=== PATIENT | male | born 1945 | race Caucasian/White ===

== ENCOUNTER 2019-10-29 18:03 | Emergency (ER) | payer MEDICARE, BC ==
[2019-10-29 18:41] VITALS: BP 165/98; PULSE 87
--- NOTE | 2019-10-29 19:39 | EDM.PDOC ---
ED HPI GENERAL MEDICAL PROBLEM - General Chief Complaint: Lower Extremity Injury/Pain Stated Complaint: FELL RT UPPER LEG INJURY Time Seen by Provider: 10/29/19 18:59 Source of Information: Reports: Patient History Limitations: Reports: No Limitations - History of Present Illness INITIAL COMMENTS - FREE TEXT/NARRATIVE: TRIAGE NOTE -- Pt presents to ER for complaints of right leg pain and bilateral lower back pain after a fall. Pt states that he was walking towards the mailbox when he started "leaning towards the right" and just fell onto the ground. Pt landed on the right side of his body, has pain on the right hip which radiates into the bilateral lower back, and has right elbow pain. Pt states that he did hit his head, denies having a headache or blurred vision. Pt was able to get himself off the ground and call for help. Pt has had previous lower back surgery and has had bilateral knee replacements. Pt is alert and oriented, is taking 81 mg aspirin daily, and did not take anything for pain [employer]. [ End ] ABOVE. . . HAD L-SPING PROCEDURE SEPT THIS YEAR. APPARENTLY FOR RADICULAR PAIN. FELL THREE WEEKS AGO WITH PAIN LEFT HIP. NO IMAGING OF WORK UP. HAS BEEN SEEING CHIROPRACTOR FOR THIS. FELL TONIGHT ABOVE. THINKS HE HIT HEAD. PAIN IN NECK DIFFUSELY. NO SYNCOPE, NO LOC. NO CP ETC INVOLVED. NO PRECIPITANT IDENTIFIED. 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 PAIN IN RIGHT HIP DIFFUSELY AND LATERALLY AND SEEMS TO BE RADIATING LOW BACK TO HIP AND RIGHT THIGH. RISK FACTORS AGE. MEDICAL PROBLEMS. HX OF ORTHO ISSUES. Right Leg Pain Score (Numeric/FACES): 2 - Related Data Allergies Allergy/AdvReac Type Severity Reaction Status Date / Time No Known Allergies Allergy Verified 10/29/19 18:42 Home Meds: Home Meds Aspirin [Halfprin] 81 mg PO DAILY 09/21/14 [History] Calcium Carbonate [Calcium] 500 mg PO DAILY 09/21/14 [History] Celecoxib [CeleBREX] 200 mg PO DAILY 09/21/14 [History] Desoximetasone [Topicort 0.05% Crm] 1 dose TOP DAILY 09/21/14 [History] Fish Oil/[place]-3 Fatty Acids [Fish Oil 1,000 MG] 1,000 mg PO DAILY 09/21/14 [ History] Hydrocortisone [Anusol-HC] 1 dose TOP DAILY 09/21/14 [History] Lutein 20 mg PO DAILY 09/21/14 [History] Multivits-Min/FA/Lycopene/Lut [Sentry Senior] 1 tab PO DAILY 09/21/14 [History] Triamterene/Hydrochlorothiazid [Dyazide 37.5-25] 1 cap PO DAILY 09/21/14 [ History] LORazepam [Ativan] 0.5 mg PO Q12H PRN 03/22/15 [History] Amoxicillin 2,000 mg PO ASDIRECTED PRN 10/29/19 [History] Cetirizine [ZyrTEC] 10 mg PO DAILY 10/29/19 [History] Doxazosin [Doxazosin Mesylate] 4 mg PO DAILY 10/29/19 [History] Escitalopram [Lexapro] 20 mg PO DAILY 10/29/19 [History] Hydrocodone/Acetaminophen [[place] 10-325 Tablet] 1 each PO Q6HR PRN 10/29/19 [ History] methylPREDNISolone [Methylprednisolone] 4 mg PO DAILY 10/29/19 [History] Past Medical History HEENT History: Reports: Cataract, Glaucoma, Impaired Vision Other HEENT History: Wears glasses Cardiovascular History: Reports: Hypertension, Other (See Below) Other Cardiovascular History: Bundle Branch Block Respiratory History: Reports: None Gastrointestinal History: Reports: Colon Polyp, GERD, Hemorrhoids, Other (See Below) Other Gastrointestinal History: Ulcerative colitis Genitourinary History: Reports: BPH Other Musculoskeletal History: Right foot drop Neurological History: Reports: None Psychiatric History: Reports: Depression Endocrine/Metabolic History: Reports: None Hematologic History: Reports: None Immunologic History: Reports: None Other Oncologic History: Melanoma Dermatologic History: Reports: Melanoma Other Dermatologic History: Left Ear Melanoma - Infectious Disease History Infectious Disease History: Reports: None - Past Surgical History HEENT Surgical History: Reports: Cataract Surgery Other HEENT Surgeries/Procedures: Bilateral Eye Derpipheral Iridotomy GI Surgical History: Reports: Hernia, Inguinal, Hernia Repair/Other Musculoskeletal Surgical History: Reports: Knee Replacement, Shoulder Surgery Other Musculoskeletal Surgeries/Procedures:: Left Rotator Cuff Repair; Trigger Finger Repair; Bursa Sacs removed from bilateral knees; Bilateral total knee replacement; Reverse total shoulder arthroplasty; left midfoot fusion, Left hand procedures. Social & Family History - Tobacco Use Smoking Status *Q: Never Smoker - Caffeine Use Caffeine Use: Reports: Coffee - Recreational Drug Use Recreational Drug Use: No Review of Systems - Review of Systems Review Of Systems: Comprehensive ROS is negative, except as noted in HPI. ED EXAM, GENERAL - Physical Exam Exam: See Below Exam Limited By: No Limitations General Appearance: Alert Eye Exam: Bilateral Eye: EOMI, PERRL Ears: Normal External Exam Nose: Normal Inspection Throat/Mouth: Normal Inspection Head: Atraumatic, Normocephalic. No: Facial Swelling Neck: Normal Inspection, Supple, Non-Tender Respiratory/Chest: No Respiratory Distress, Lungs Clear, Normal Breath Sounds Cardiovascular: Normal Peripheral Pulses (BOUNDING PEDAL PULSES), Regular Rate, Rhythm, No Edema GI/Abdominal: Soft, Non-Tender, Other (TENDER OVER RIGHT PUBIC RAMUS TO DEEP PALPATION) Back Exam: Other (OLD WELL HEALED LONGITUDINAL MIDLINE SCAR LOW BACK). No: CVA Tenderness (L), CVA Tenderness (R), Paraspinal Tenderness, Vertebral Tenderness Extremities: Other (NO DEFORMITY NO LEG LENGTH DISCREPITANCY NO PAIN ON DEEP PALPATION OF HIP JOINTS ADEQUATE ROM HIPS) Neurological: Alert, Oriented, CN II-XII Intact, Normal Cognition Psychiatric: Normal Affect, Normal Mood Skin Exam: Warm, Dry Course - Vital Signs Text/Narrative:: The patient has had CT scans of head cervical spine lumbar spine and pelvis. Acutely there is right superior and inferior pubic rami fractures. This is consistent with the patient's exam. This is undoubtedly from his fall prior to arrival. Additionally there is a finding of multiple column fracture involving anterior and posterior elements of left L5 vertebral level. This is undoubtedly from a fall 3 weeks ago. On his face of fracture such as this is unstable. However I spoke with the patient's neurosurgeon Dr. Bimal Lyman in [place]. Dr. Lyman did spinal surgery on the patient in July of this year. Dr. Lyman will be in town on Friday and the patient has an appointment with him. As this finding is undoubtedly 3 weeks old and the patient has been improving over the past 3 weeks and there is no tenderness in the area and patient can sit up readily and mobilize there is no reason for admission or transfer for this. Dr. Lyman notes that after 3 weeks the issue of possible instability has been laid to rest. The patient is happy to go home and we will discharge him. However he needs someone in the house with him and family is at bedside and someone will be staying with him for the immediate future. Strict precautions for return to ER. Last Recorded V/S: Last Vital Signs Temp 36.7 C 10/29/19 18:38 Pulse 87 10/29/19 18:38 Resp 18 10/29/19 18:38 BP 165/98 H 10/29/19 18:38 Pulse Ox 95 10/29/19 18:38 - Orders/Labs/Meds Orders: Active Orders 24 hr Category Date Time Status Cervical Spine wo Cont [CT] Stat Exams 10/29/19 19:13 Taken Head wo Cont [CT] Stat Exams 10/29/19 19:13 Taken Lumbar Spine wo Cont [CT] Stat Exams 10/29/19 19:10 Taken Pelvis wo Cont [CT] Stat Exams 10/29/19 19:10 Taken Departure - Departure Time of Disposition: 22:03 Disposition: Home, Self-Care 01 Clinical Impression: Fracture of right inferior pubic ramus Qualifiers: Encounter type: initial encounter Fracture type: closed Qualified Code(s): S32.591A - Other specified fracture of right pubis, initial encounter for closed fracture Fracture of right superior pubic ramus Qualifiers: Encounter type: initial encounter Fracture type: closed Qualified Code(s): S32.511A - Fracture of superior rim of right pubis, initial encounter for closed fracture Closed L5 vertebral fracture Qualifiers: Encounter type: initial encounter Fracture morphology: unspecified fracture morphology Qualified Code(s): S32.059A - Unspecified fracture of fifth lumbar vertebra, initial encounter for closed fracture - Discharge Information Referrals: Rob Sands MD [Primary Care Provider] - Forms: ED Department Discharge Additional Instructions: You have an acute fracture of the right pubic bones of the pelvis. That is from your fall today. There is also a fracture of the fifth lumbar vertebra which is probably 3 weeks old and without threat of instability and essentially asymptomatic at this point. I have spoken with Dr. Lyman and we have his consent to let you go home. However you need to have someone in the house with you to make sure that you can do transfers and get around the house safely. Dr. Lyman will see you when he visits [place] this coming Friday. Return to the ER for any concerns at all including pain, fever, any inability to mobilize. Sepsis Event Note - Evaluation Sepsis Screening Result: No Definite Risk - Focused Exam Vital Signs: Vital Signs Temp Pulse Resp BP Pulse Ox 10/29/19 18:38 36.7 C 87 18 165/98 H 95 Date Exam was Performed: 10/29/19 Time Exam was Performed: 22:09 - My Orders Last 24 Hours: My Active Orders 10/29/19 19:10 Lumbar Spine wo Cont [CT] Stat Pelvis wo Cont [CT] Stat 10/29/19 19:13 Cervical Spine wo Cont [CT] Stat Head wo Cont [CT] Stat - Assessment/Plan Last 24 Hours: My Active Orders 10/29/19 19:10 Lumbar Spine wo Cont [CT] Stat Pelvis wo Cont [CT] Stat 10/29/19 19:13 Cervical Spine wo Cont [CT] Stat Head wo Cont [CT] Stat
--- NOTE | 2019-11-01 07:12 | CT ---
CT lumbar spine Technique: Multiple axial sections were obtained from above the T10-T11 disc inferiorly through the L5-S1 disc. Reconstructed sagittal and coronal images were reviewed. Comparison: Previous lumbar spine study is not available. Old bilateral spondylitic defects seen at L5-S1. Acute fracture is identified involving the base of the transverse process and pedicle of L5 on the left side with extension into the apophyseal joint. No displacement is seen. No additional vertebral body or posterior arch fracture is seen. Disc space narrowing seen at T12-L1, L1-L2 and L2-L3 with vacuum phenomena. Posterior disc space narrowing noted at L5-S1 with vacuum phenomena. Mild spondylolisthesis noted at L4-L5 due to degenerative apophyseal change. Posterior spurring noted at T12-L1, L1-L2 and L2-L3. No central canal stenosis is seen. Moderate neural foraminal stenosis is noted at T11-T12 on both sides. Left-sided neural foraminal stenosis at T12-L1. Bilateral neural foraminal stenosis at L1-L2. Bilateral neural foraminal stenosis at L2-L3. Left-sided neural foraminal stenosis at L3-L4. Left-sided laminectomy noted at L4-L5 with moderate central canal stenosis. Impression: 1. Fractures within the posterior element of L5 on left side with no displacement. Old bilateral spondylitic defects at L5-S1. 2. Diffuse degenerative change as noted above. Diagnostic code #5 This report was dictated in [place] Standard Time I agree with preliminary report issued by [facility] ([facility] report finalized on 10/29/19, 9:48 PM Central Time)
--- NOTE | 2019-11-01 07:12 | CT ---
CT cervical spine Technique: Multiple axial sections were obtained from above C1 inferiorly to the lower T2 vertebral body. Reconstructed sagittal and coronal images were reviewed. Comparison: Previous MRI cervical spine study of 12/12/17. Findings: Diffuse degenerative change is noted which appears similar to prior MRI. Slight superior compression deformity of T2 is seen which appears stable from prior MRI. No acute fracture is seen. Slight spondylolisthesis is noted at C4-C5 due to degenerative apophyseal change which is stable from previous MRI. Impression: 1. Diffuse degenerative changes similar to previous MRI cervical spine study of 12/12/17. 2. No acute fracture or acute subluxation is seen. Diagnostic code #2 This report was dictated in [place] Standard Time I agree with preliminary report issued by [facility] ([facility] report finalized on 10/29/19, 9:37 PM Central Time)
--- NOTE | 2019-11-01 07:12 | CT ---
Head CT Technique: Multiple axial sections through the brain were obtained. Intravenous contrast was not utilized. Comparison: No prior intracranial imaging is available. Findings: Ventricles along with basal cisterns and sulci over the convexities appear within normal limits for the patient's age. Atherosclerotic calcification is seen within the carotid siphon. No evidence of intracranial hemorrhage. No midline shift or mass effect is seen. Bone window settings were reviewed which show the visualized paranasal sinuses and mastoid sinuses to show nothing acute. No acute calvarial abnormality is seen. Impression: 1. Nothing acute is appreciated on noncontrast head CT study. Diagnostic code #1 I agree with preliminary report issued by [facility] ([facility] report finalized on 10/29/19, 9:40 PM Central Time) This report was dictated in [place] Standard Time
--- NOTE | 2019-11-01 07:12 | CT ---
CT pelvis Technique: Multiple axial sections through the pelvis were obtained. Reconstructed coronal and sagittal images were obtained. Comparison: No prior pelvis exam is available. Findings: Fracture noted within the right inferior and superior pubic ramus. Fracture is identified at the base of the transverse process of the L5 vertebral body extending into the apophyseal joint on the left side. No displacement is seen of these fractures. Spondylolytic defects are seen at L5-S1. Degenerative apophyseal change is noted within the sacroiliac joints and within the apophyseal joints of L5-S1. Numerous sigmoid diverticuli are seen. No intrapelvic hematoma is seen. Impression: 1. Left-sided lumbar spine fracture involving L5 which was described on CT lumbar spine exam. 2. Fractures within the inferior and superior right pubic ramus. Diagnostic code #5 This report was dictated in [place] Standard Time I agree with preliminary report issued by [facility] ([facility] report finalized on 10/29/19, 9:45 PM Central Time)
== END 2019-10-29 22:21 | disposition home or self-care (01) ==
LOC: JD.ED 18:03
DX: S32.511A Fracture of superior rim of right pubis, initial encounter for closed fracture (principal); S32.059A Unspecified fracture of fifth lumbar vertebra, initial encounter for closed fracture; I10 Essential (primary) hypertension; Z79.899 Other long term (current) drug therapy; Z79.82 Long term (current) use of aspirin; W19.XXXA Unspecified fall, initial encounter
CPT/HCPCS: 70450; 70450-26; 72125; 72125-26; 72131; 72131-26; 72192; 72192-26; 99283; 99283-25

== ENCOUNTER 2019-11-03 19:22 | Emergency (ER) | payer MEDICARE, BC ==
[2019-11-03 19:36] VITALS: BP 143/80; PULSE 75
--- NOTE | 2019-11-03 20:09 | EDM.PDOC ---
ED HPI GENERAL MEDICAL PROBLEM - General Chief Complaint: Back Pain or Injury Stated Complaint: LOWER BACK PAIN & LEG PAIN Time Seen by Provider: 11/03/19 19:59 - History of Present Illness INITIAL COMMENTS - FREE TEXT/NARRATIVE: 74-year-old male presents the emergency room with continued back and pelvis pain. The patient fell on the while blowing snow he ended up with transverse process fracture at L5 and a inferior and superior ramus fracture on the right side. Patient is having difficulty getting comfortable with this he is minimizing his hydrocodone to take 1 at night so he can get some rest he is worried about addiction. So watching his Tylenol intake. Had a long discussion with the patient about what is appropriate and pain management what is not I think it is perfectly appropriate that he use the pain medication at this point to get in front of the pain and then he can back off on using it. Has not had any loss of bowel or bladder control he has discomfort mostly with his right leg when he tries to ambulate and this is to be expected. He has pain going across the segment of his low back he has no loss of bowel or bladder control no other radicular symptoms. Lower Back Pain Score (Numeric/FACES): 4 - Related Data Allergies Allergy/AdvReac Type Severity Reaction Status Date / Time No Known Allergies Allergy Verified 11/03/19 19:32 Home Meds: Home Meds Aspirin [Halfprin] 81 mg PO DAILY 09/21/14 [History] Calcium Carbonate [Calcium] 500 mg PO DAILY 09/21/14 [History] Celecoxib [CeleBREX] 200 mg PO BID 09/21/14 [History] Desoximetasone [Topicort 0.05% Crm] 1 dose TOP DAILY 09/21/14 [History] Fish Oil/[place]-3 Fatty Acids [Fish Oil 1,000 MG] 1,000 mg PO DAILY 09/21/14 [ History] Hydrocortisone [Anusol-HC] 1 dose TOP DAILY 09/21/14 [History] Lutein 20 mg PO DAILY 09/21/14 [History] Multivits-Min/FA/Lycopene/Lut [Sentry Senior] 1 tab PO DAILY 09/21/14 [History] Triamterene/Hydrochlorothiazid [Dyazide 37.5-25] 1 cap PO DAILY 09/21/14 [ History] LORazepam [Ativan] 0.5 mg PO BEDTIME PRN 03/22/15 [History] Amoxicillin 2,000 mg PO ASDIRECTED PRN 10/29/19 [History] Cetirizine [ZyrTEC] 10 mg PO DAILY 10/29/19 [History] Doxazosin [Doxazosin Mesylate] 4 mg PO DAILY 10/29/19 [History] Escitalopram [Lexapro] 20 mg PO DAILY 10/29/19 [History] Hydrocodone/Acetaminophen [[place] 10-325 Tablet] 1 each PO Q6HR PRN 10/29/19 [ History] Omeprazole 20 mg PO DAILY 11/03/19 [History] Terbinafine [LamISIL] 250 mg PO DAILY 11/03/19 [History] Tylenol Pm. 11/03/19 [History] Past Medical History HEENT History: Reports: Cataract, Glaucoma, Impaired Vision Other HEENT History: Wears glasses Cardiovascular History: Reports: Hypertension, Other (See Below) Other Cardiovascular History: Bundle Branch Block Respiratory History: Reports: None Gastrointestinal History: Reports: Colon Polyp, GERD, Hemorrhoids, Other (See Below) Other Gastrointestinal History: Ulcerative colitis Genitourinary History: Reports: BPH Other Musculoskeletal History: Right foot drop Neurological History: Reports: None Psychiatric History: Reports: Depression Endocrine/Metabolic History: Reports: None Hematologic History: Reports: None Immunologic History: Reports: None Other Oncologic History: Melanoma Dermatologic History: Reports: Melanoma Other Dermatologic History: Left Ear Melanoma - Infectious Disease History Infectious Disease History: Reports: None - Past Surgical History HEENT Surgical History: Reports: Cataract Surgery Other HEENT Surgeries/Procedures: Bilateral Eye Derpipheral Iridotomy GI Surgical History: Reports: Hernia, Inguinal, Hernia Repair/Other Musculoskeletal Surgical History: Reports: Knee Replacement, Shoulder Surgery Other Musculoskeletal Surgeries/Procedures:: Left Rotator Cuff Repair; Trigger Finger Repair; Bursa Sacs removed from bilateral knees; Bilateral total knee replacement; Reverse total shoulder arthroplasty; left midfoot fusion, Left hand procedures. Social & Family History - Tobacco Use Smoking Status *Q: Never Smoker - Caffeine Use Caffeine Use: Reports: Coffee ED ROS GENERAL - Review of Systems Review Of Systems: See Below Constitutional: Reports: No Symptoms HEENT: Reports: No Symptoms Respiratory: Reports: No Symptoms Cardiovascular: Reports: Dyspnea on Exertion GI/Abdominal: Reports: No Symptoms Musculoskeletal: Reports: Back Pain, Other (Pelvis pain from the ramus fracture) Skin: Reports: No Symptoms Neurological: Reports: No Symptoms Psychiatric: Reports: No Symptoms Hematologic/Lymphatic: Reports: No Symptoms ED EXAM,LOWER BACK PAIN/INJURY - Physical Exam Exam: See Below Exam Limited By: No Limitations General Appearance: Alert, No Apparent Distress Head: Atraumatic, Normocephalic Neck: Normal Inspection, Supple, Non-Tender, Full Range of Motion Respiratory/Chest: No Respiratory Distress, Lungs Clear, Normal Breath Sounds Cardiovascular: Regular Rate, Rhythm, No Edema, No Murmur GI/Abdominal: Normal Bowel Sounds, Soft, Non-Tender Back Exam: Normal Inspection, Vertebral Tenderness (All discomfort at L5 would expect more with a spinous process fracture however it is nondisplaced). No: CVA Tenderness (L), CVA Tenderness (R) Extremities: Normal Inspection, No Pedal Edema Neurological: Alert, Normal Mood/Affect Course - Vital Signs Last Recorded V/S: Last Vital Signs Temp 36.3 C 11/03/19 19:32 Pulse 75 11/03/19 19:32 Resp BP 143/80 H 11/03/19 19:32 Pulse Ox 93 L 11/03/19 19:32 - Re-Assessments/Exams Free Text/Narrative Re-Assessment/Exam: 11/03/19 20:38 Discussed proper pain management at this point I think he should use the hydrocodone 3-4 times a day until the pain is under control then he can back off slowly from this. He needs to keep a close eye on his Tylenol ingestion amount and keep it between 3 and 4000 mg a day he does have a good understanding of this. Departure - Departure Time of Disposition: 20:39 Disposition: Home, Self-Care 01 Preliminary Cause of *Q: Sepsis & Multi System Organ Failure Clinical Impression: Fracture of spinous process of lumbar vertebra Closed L5 vertebral fracture Qualifiers: Encounter type: initial encounter Fracture morphology: unspecified fracture morphology Qualified Code(s): S32.059A - Unspecified fracture of fifth lumbar vertebra, initial encounter for closed fracture Fracture of right inferior pubic ramus Qualifiers: Encounter type: initial encounter Fracture type: closed Qualified Code(s): S32.591A - Other specified fracture of right pubis, initial encounter for closed fracture Fracture of right superior pubic ramus Qualifiers: Encounter type: initial encounter Fracture type: closed Qualified Code(s): S32.511A - Fracture of superior rim of right pubis, initial encounter for closed fracture - Discharge Information Referrals: Rob Sands MD [Primary Care Provider] - Forms: ED Department Discharge Additional Instructions: Return to the emergency room with any questions problems or worsening symptoms. Take your hydrocodone 3-4 times a day until you get good control of your pain and then back off as tolerated. It is reasonable to give yourself 12 hours after using the hydrocodone before driving or returning to work as this can cause some sedation. Also a good stool softener is important as the hydrocodone can cause constipation. Follow-up with your physicians as scheduled sooner if needed. Sepsis Event Note - Evaluation Sepsis Screening Result: No Definite Risk - Focused Exam Vital Signs: Vital Signs Temp Pulse BP Pulse Ox 11/03/19 19:32 36.3 C 75 143/80 H 93 L Date Exam was Performed: 11/03/19 Time Exam was Performed: 20:33
== END 2019-11-03 20:52 | disposition home or self-care (01) ==
LOC: JD.ED 19:22
DX: S32.511A Fracture of superior rim of right pubis, initial encounter for closed fracture (principal); S32.059A Unspecified fracture of fifth lumbar vertebra, initial encounter for closed fracture; S32.591A Other specified fracture of right pubis, initial encounter for closed fracture; I10 Essential (primary) hypertension; K21.9 Gastro-esophageal reflux disease without esophagitis; F32.9 Major depressive disorder, single episode, unspecified; Z79.899 Other long term (current) drug therapy; Z79.82 Long term (current) use of aspirin; W19.XXXA Unspecified fall, initial encounter
CPT/HCPCS: 99282; 99283

== ENCOUNTER 2020-07-19 18:32 | Emergency (ER) | payer MEDICARE, BC ==
[2020-07-19 18:52] VITALS: BP 181/92; PULSE 47
[2020-07-19] MEDS ORDERED: Ondansetron 4 MG/2 ML SDV IVPUSH ONE (19:02)
[2020-07-19] MEDS ORDERED: Sodium Chloride 0.9% 10 ML Syringe FLUSH PRN (19:02)
[2020-07-19] MEDS ORDERED: Sodium Chloride 0.9% 1,000 ML IV SCH (19:15)
--- NOTE | 2020-07-19 19:36 | EDM.PDOC ---
ED HPI GENERAL MEDICAL PROBLEM - General Chief Complaint: Cardiovascular Problem Stated Complaint: dizzy low pulse Time Seen by Provider: 07/19/20 18:56 Source of Information: Reports: Patient History Limitations: Reports: No Limitations - History of Present Illness INITIAL COMMENTS - FREE TEXT/NARRATIVE: The patient presents from the walk in clinic for dizziness and bradycardia. He said he woke up this morning with the dizziness. He says he is off balance and had some nausea. He had this before but did not see anyone. He denies a headache, fever, chills, cough, congestion, runny nose, chest pain, shortness of breath, abdominal pain, vomiting, numbness or weakness. He has no hearing loss, pain in his ears or ringing in his ears. He went to the walk in clinic and they took his vital signs and his pulse was low in the 40s and he was sent over here for evaluations. His EKG when he arrived here shows sinus bradycardia. As far as he knows his heart rate is usually not that slow. He said one time it happened and Dr Sands did an EKG and nothing more was done. He is no on any beta blockers or calcium channel blockers. Onset: Gradual Duration: Hour(s): Severity: Moderate Improves with: Reports: Immobilization Worsens with: Reports: Movement Associated Symptoms: Reports: Nausea/Vomiting. Denies: Chest Pain, Cough, Fever/Chills, Headaches, Shortness of Breath - Related Data Allergies Allergy/AdvReac Type Severity Reaction Status Date / Time No Known Allergies Allergy Verified 07/19/20 18:52 Home Meds: Home Meds Aspirin [Halfprin] 81 mg PO DAILY 09/21/14 [History] Calcium Carbonate [Calcium] 500 mg PO DAILY 09/21/14 [History] Celecoxib [CeleBREX] 200 mg PO BID 09/21/14 [History] Desoximetasone [Topicort 0.05% Crm] 1 dose TOP DAILY 09/21/14 [History] Fish Oil/[place]-3 Fatty Acids [Fish Oil 1,000 MG] 1,000 mg PO DAILY 09/21/14 [History] Hydrocortisone [Anusol-HC] 1 dose TOP DAILY 09/21/14 [History] Lutein 20 mg PO DAILY 09/21/14 [History] Multivits-Min/FA/Lycopene/Lut [[facility]] 1 tab PO DAILY 09/21/14 [History] Triamterene/Hydrochlorothiazid [Dyazide 37.5-25] 1 cap PO DAILY 09/21/14 [History] LORazepam [Ativan] 0.5 mg PO BEDTIME PRN 03/22/15 [History] Amoxicillin 2,000 mg PO ASDIRECTED PRN 10/29/19 [History] Cetirizine [ZyrTEC] 10 mg PO DAILY 10/29/19 [History] Doxazosin [Doxazosin Mesylate] 4 mg PO DAILY 10/29/19 [History] Escitalopram [Lexapro] 20 mg PO DAILY 10/29/19 [History] Omeprazole 20 mg PO DAILY 11/03/19 [History] Meclizine [Antivert] 25 mg PO Q6H PRN #30 tab 07/19/20 [Rx] Oxymetazoline HCl [Nasal [place]] 1 spr NS BID 07/19/20 [History] Past Medical History HEENT History: Reports: Cataract, Glaucoma, Impaired Vision Other HEENT History: Wears glasses Cardiovascular History: Reports: Hypertension, Other (See Below) Other Cardiovascular History: Bundle Branch Block Respiratory History: Reports: None Gastrointestinal History: Reports: Colon Polyp, GERD, Hemorrhoids, Other (See Below) Other Gastrointestinal History: Ulcerative colitis Genitourinary History: Reports: BPH Other Musculoskeletal History: Right foot drop Neurological History: Reports: None Psychiatric History: Reports: Depression Endocrine/Metabolic History: Reports: None Hematologic History: Reports: None Immunologic History: Reports: None Other Oncologic History: Melanoma Dermatologic History: Reports: Melanoma Other Dermatologic History: Left Ear Melanoma - Infectious Disease History Infectious Disease History: Reports: None - Past Surgical History HEENT Surgical History: Reports: Cataract Surgery Other HEENT Surgeries/Procedures: Bilateral Eye Derpipheral Iridotomy GI Surgical History: Reports: Hernia, Inguinal, Hernia Repair/Other Neurological Surgical History: Reports: Lumbar Spine Musculoskeletal Surgical History: Reports: Knee Replacement, Shoulder Surgery Other Musculoskeletal Surgeries/Procedures:: Left Rotator Cuff Repair; Trigger Finger Repair; Bursa Sacs removed from bilateral knees; Bilateral total knee replacement; Reverse total shoulder arthroplasty; left midfoot fusion, Left hand procedures. Social & Family History - Tobacco Use Smoking Status *Q: Never Smoker - Caffeine Use Caffeine Use: Reports: Coffee - Recreational Drug Use Recreational Drug Use: No ED ROS GENERAL - Review of Systems Review Of Systems: See Below Constitutional: Reports: No Symptoms HEENT: Reports: No Symptoms Respiratory: Reports: No Symptoms Cardiovascular: Reports: No Symptoms Endocrine: Reports: No Symptoms GI/Abdominal: Reports: Nausea. Denies: Abdominal Pain, Vomiting : Reports: No Symptoms Musculoskeletal: Reports: No Symptoms Skin: Reports: No Symptoms Neurological: Reports: Dizziness. Denies: Numbness, Weakness ED EXAM, GENERAL - Physical Exam Exam: See Below Exam Limited By: No Limitations General Appearance: Alert, No Apparent Distress Ears: Normal External Exam Nose: Normal Inspection Head: Atraumatic, Normocephalic Neck: Normal Inspection Respiratory/Chest: No Respiratory Distress, Lungs Clear, Normal Breath Sounds Cardiovascular: No Edema, No Murmur, Bradycardia GI/Abdominal: Soft, Non-Tender, No Organomegaly, No Mass Back Exam: Normal Inspection Extremities: Normal Inspection Neurological: Alert, Oriented, No Motor/Sensory Deficits EKG INTERPRETATION EKG Date: 07/19/20 Time: 18:44 Rhythm: Other (sinus bradycardia) Rate (Beats/Min): 44 [place]: Normal P-Wave: Present QRS: Normal ST-T: Normal QT: Normal Course - Vital Signs Last Recorded V/S: Last Vital Signs Temp 97.5 F 07/19/20 18:40 Pulse 47 L 07/19/20 18:40 Resp 16 07/19/20 18:40 BP 181/92 H 07/19/20 18:40 Pulse Ox 97 07/19/20 18:40 - Orders/Labs/Meds Orders: Active Orders 24 hr Category Date Time Status Cardiac Monitoring [RC] . DIRECTED Care 07/19/20 19:02 Active EKG 12 Lead [EKG Documentation Completion] [RC] ROUTINE Care 07/19/20 18:44 Active Holter Monitor 48 Hours [RC] .PRN Care 07/19/20 20:11 Active Peripheral IV Care [RC] . DIRECTED Care 07/19/20 19:03 Active Sodium Chloride 0.9% [Normal Saline] 1,000 ml Med 07/19/20 19:15 Active IV ASDIRECTED Sodium Chloride 0.9% [Saline Flush] Med 07/19/20 19:02 Active 10 ml FLUSH ASDIRECTED PRN ED Antiemetic Medication Reflex [OM.PC] Stat Oth 07/19/20 19:02 Ordered Peripheral IV Insertion Adult [OM.PC] Stat Oth 07/19/20 19:02 Ordered Medication Orders Sodium Chloride (Normal Saline) 1,000 mls @ 125 mls/hr IV ASDIRECTED SUSHMA Last Admin: 07/19/20 19:11 Dose: 125 mls/hr Documented by: MARIA ESTHER Sodium Chloride (Saline Flush) 10 ml FLUSH ASDIRECTED PRN PRN Reason: Keep Vein Open Last Admin: 07/19/20 19:11 Dose: 10 ml Documented by: MARIA ESTHER Labs: Laboratory Tests 07/19/20 07/19/20 Range/Units 18:42 18:42 WBC 7.37 (4.23-9.07) K/mm3 RBC 4.46 L (4.63-6.08) M/mm3 Hgb 14.2 (13.7-17.5) gm/dl Hct 43.1 (40.1-51.0) % MCV 96.6 H (79.0-92.2) fl MCH 31.8 (25.7-32.2) pg MCHC 32.9 (32.2-35.5) g/dl RDW Std Deviation 46.8 H (35.1-43.9) fL Plt Count 249 (163-337) K/mm3 MPV 9.8 (9.4-12.3) fl Neut % (Auto) 59.8 (34.0-67.9) % Lymph % (Auto) 29.3 (21.8-53.1) % [place] % (Auto) 7.6 (5.3-12.2) % Eos % (Auto) 2.3 (0.8-7.0) Baso % (Auto) 0.7 (0.1-1.2) % Neut # (Auto) 4.41 (1.78-5.38) K/mm3 Lymph # (Auto) 2.16 (1.32-3.57) K/mm3 [place] # (Auto) 0.56 (0.30-0.82) K/mm3 Eos # (Auto) 0.17 (0.04-0.54) K/mm3 Baso # (Auto) 0.05 (0.01-0.08) K/mm3 Sodium 140 (136-145) mEq/L Potassium 3.9 (3.5-5.1) mEq/L Chloride 103 (98-107) mEq/L Carbon Dioxide 27 (21-32) mEq/L Anion Gap 13.9 (5-15) BUN 20 H (7-18) mg/dL Creatinine 1.0 (0.7-1.3) mg/dL Est Cr Clr Drug Dosing 65.90 mL/min Estimated GFR (MDRD) > 60 (>60) mL/min BUN/Creatinine Ratio 20.0 H (14-18) Glucose 109 (83-115) mg/dL Calcium 8.9 (8.5-10.1) mg/dL Magnesium 2.2 (1.8-2.4) mg/dl Total Bilirubin 0.3 (0.2-1.0) mg/dL AST 20 (15-37) U/L ALT 29 (16-63) U/L Alkaline Phosphatase 96 (46-116) U/L Troponin I < 0.017 (0.00-0.056) ng/mL Total Protein 6.4 (6.4-8.2) g/dl Albumin 3.7 (3.4-5.0) g/dl Globulin 2.7 gm/dL Albumin/Globulin Ratio 1.4 (1-2) Meds: Medications Generic Name Dose Route Start Last Admin Trade Name Freq PRN Reason Stop Dose Admin Sodium Chloride 1,000 mls @ 125 mls/hr 07/19/20 19:15 07/19/20 19:11 Normal Saline IV 125 mls/hr ASDIRECTED SUSHMA Administration Sodium Chloride 10 ml 07/19/20 19:02 07/19/20 19:11 Saline Flush FLUSH 10 ml ASDIRECTED PRN Administration Keep Vein Open Discontinued Medications Generic Name Dose Route Start Last Admin Trade Name Freq PRN Reason Stop Dose Admin Meclizine HCl 25 mg 07/19/20 19:03 07/19/20 19:11 Antivert PO 07/19/20 19:04 25 mg ONETIME ONE Administration Ondansetron HCl 4 mg 07/19/20 19:02 07/19/20 19:11 Zofran IVPUSH 07/19/20 19:03 4 mg ONETIME ONE Administration - Re-Assessments/Exams Free Text/Narrative Re-Assessment/Exam: 07/19/20 19:38 I ordered an IV NS at 125mL/hr, zofran 4mg IV, antivert 25mg PO, EKG, CT of his head and labs. His EKG shows a sinus bradycardia with no acute changes. 07/19/20 20:12 His CBC, CMP and troponin are negative. He feels a little better. I will refer him to PT and give him some antivert. I will also give him a holter monitor for a few days. Departure - Departure Time of Disposition: 20:15 Disposition: Home, Self-Care 01 Condition: Good Clinical Impression: Bradycardia, Vertigo Prescriptions: Meclizine [Antivert] 25 mg PO Q6H PRN #30 tab PRN Reason: Dizziness Referrals: Rob Sands MD [Primary Care Provider] - 1 Week Forms: ED Department Discharge Additional Instructions: Take the antivert every 6 hours as needed for dizziness. Call physical therapy tomorrow at [phone] to make an appointment for the vertigo. Wear the holtor monitor for 48 hours and follow up with Dr Sands. Please return if you are worse. Sepsis Event Note (ED) - Evaluation Sepsis Screening Result: No Definite Risk - Focused Exam Vital Signs: Vital Signs Temp Pulse Resp BP Pulse Ox 07/19/20 18:40 97.5 F 47 L 16 181/92 H 97 - My Orders Last 24 Hours: My Active Orders 07/19/20 18:44 EKG 12 Lead [EKG Documentation Completion] [RC] ROUTINE 07/19/20 19:02 Cardiac Monitoring [RC] . DIRECTED Sodium Chloride 0.9% [Saline Flush] 10 ml FLUSH ASDIRECTED PRN ED Antiemetic Medication Reflex [OM.PC] Stat Peripheral IV Insertion Adult [OM.PC] Stat 07/19/20 19:03 Peripheral IV Care [RC] . DIRECTED 07/19/20 19:15 Sodium Chloride 0.9% [Normal Saline] 1,000 ml IV ASDIRECTED 07/19/20 20:11 Holter Monitor 48 Hours [RC] .PRN - Assessment/Plan Last 24 Hours: My Active Orders 07/19/20 18:44 EKG 12 Lead [EKG Documentation Completion] [RC] ROUTINE 07/19/20 19:02 Cardiac Monitoring [RC] . DIRECTED Sodium Chloride 0.9% [Saline Flush] 10 ml FLUSH ASDIRECTED PRN ED Antiemetic Medication Reflex [OM.PC] Stat Peripheral IV Insertion Adult [OM.PC] Stat 07/19/20 19:03 Peripheral IV Care [RC] . DIRECTED 07/19/20 19:15 Sodium Chloride 0.9% [Normal Saline] 1,000 ml IV ASDIRECTED 07/19/20 20:11 Holter Monitor 48 Hours [RC] .PRN
--- NOTE | 2020-07-19 19:50 | CT ---
Head CT Technique: Multiple axial sections through the brain were obtained. Intravenous contrast was not utilized. Comparison: Prior head CT study of 10/31/19. Findings: Ventricles along with basal cisterns and sulci over the convexities are within normal limits for the patient's age. 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 No other abnormal parenchymal densities are seen. Minimal areas of mucosal thickening are seen within the maxillary sinuses. Visualized mastoid sinuses are clear. No acute calvarial finding is seen. Impression: 1. Old lacunar within the left basal ganglia. 2. Age-related atrophy. 3. Minimal sinus findings most likely chronic. 4. No acute intracranial abnormality is appreciated. Diagnostic code #2 This report was dictated in MDT
== END 2020-07-19 20:51 | disposition home or self-care (01) ==
LOC: JD.ED 18:32
DX: R00.1 Bradycardia, unspecified (principal); R42 Dizziness and giddiness; I10 Essential (primary) hypertension; K21.9 Gastro-esophageal reflux disease without esophagitis; F32.9 Major depressive disorder, single episode, unspecified; Z79.899 Other long term (current) drug therapy; Z79.82 Long term (current) use of aspirin
CPT/HCPCS: 36415; 70450; 80053; 83735; 84484; 85025; 93005; 93225; 96361; 96374; 99284; A9270; J2405; J7030; 93010

== ENCOUNTER 2021-06-07 06:51 | Day surgery (SDC) | payer MEDICARE, BC ==
--- NOTE | 2021-06-06 11:45 | PCM.PREANE ---
Preanesthetic Assessment - Procedure Proposed Procedure: Right Carpal Tunnel Release, Left Carpal Tunnel Injection, And Right Small finger A1 venita release. - Anesthesia/Transfusion/Family Hx Anesthesia History: Prior Anesthesia Without Reaction Family History of Anesthesia Reaction: No Transfusion History: No Prior Transfusion(s) Intubation History: Unknown - Review of Systems General: No Symptoms Pulmonary: Shortness of Breath Cardiovascular: No Symptoms (HTN, CAD), Palpitations (History of BBB.), Lightheadedness (positonal changes/ sudden changes in position.) Gastrointestinal: No Symptoms (GERD-controlled) Neurological: No Symptoms (Lower back pain, history of vertigo.), Numbness (right hand) Other: Reports: None (BPH), Easy Bruising, Sinus Problem (Seasonal allergies), Neck Pain, Depression, Anxiety - Physical Assessment NPO Status Date: 06/06/21 NPO Status Time: 23:00 Vital Signs: HR: 51 Sat: 93% Temp: 97.9 B/P: 150/83 Resp: 20 Height: 1.78 m Weight: 90 kg ASA Class: 3 Mental Status: Alert & Oriented x3 Airway Class: Mallampati = 2 Dentition: Reports: Normal Dentition, [place](s), [place] Thyro-Mental Finger Breadths: 3 Mouth Opening Finger Breadths: 3 ROM/Head Extension: Full Lungs: Clear to Auscultation, Normal Respiratory Effort Cardiovascular: Regular Rate, Regular Rhythm, No Murmurs - Lab Values: All labs reviewed and noted and within acceptable ranges to proceed with procedure. - Imaging/EKG Impressions: EKG: SR rate=53 CXR: mild cardiomegaly - Allergies Allergies/Adverse Reactions: Allergies Allergy/AdvReac Type Severity Reaction Status Date / Time No Known Allergies Allergy Verified 06/06/21 16:09 - Anesthesia Plan Pre-Op Medication Ordered: None - Acknowledgements Anesthesia Type Planned: RIGO Pt an Appropriate Candidate for the Planned Anesthesia: Yes Alternatives and Risks of Anesthesia Discussed w Pt/Guardian: Yes Pt/Guardian Understands and Agrees with Anesthesia Plan: Yes PreAnesthesia Questionnaire HEENT History: Reports: Cataract, Glaucoma, Impaired Vision Other HEENT History: Wears glasses Cardiovascular History: Reports: Hypertension, Other (See Below) Other Cardiovascular History: Bundle Branch Block Respiratory History: Reports: None Gastrointestinal History: Reports: Colon Polyp, GERD, Hemorrhoids, Other (See Below) Other Gastrointestinal History: Ulcerative colitis Genitourinary History: Reports: BPH Other Musculoskeletal History: Right foot drop Neurological History: Reports: None Psychiatric History: Reports: Depression Endocrine/Metabolic History: Reports: None Hematologic History: Reports: None Immunologic History: Reports: None Other Oncologic History: Melanoma Dermatologic History: Reports: Melanoma Other Dermatologic History: Left Ear Melanoma - Infectious Disease History Infectious Disease History: Reports: None - Past Surgical History HEENT Surgical History: Reports: Cataract Surgery Other HEENT Surgeries/Procedures: Bilateral Eye Derpipheral Iridotomy GI Surgical History: Reports: Hernia, Inguinal, Hernia Repair/Other Neurological Surgical History: Reports: Lumbar Spine Musculoskeletal Surgical History: Reports: Knee Replacement, Shoulder Surgery Other Musculoskeletal Surgeries/Procedures:: Left Rotator Cuff Repair; Trigger Finger Repair; Bursa Sacs removed from bilateral knees; Bilateral total knee replacement; Reverse total shoulder arthroplasty; left midfoot fusion, Left hand procedures. - HOME MEDS Home Medications: Home Meds Aspirin [Halfprin] 81 mg PO DAILY 09/21/14 [History] Calcium Carbonate [Calcium] 500 mg PO DAILY 09/21/14 [History] Celecoxib [CeleBREX] 200 mg PO BID 09/21/14 [History] Fish Oil/[place]-3 Fatty Acids [Fish Oil 1,000 MG] 1,000 mg PO BID 09/21/14 [History] Lutein 20 mg PO DAILY 09/21/14 [History] Multivits-Min/FA/Lycopene/Lut [[place]] 1 tab PO BID 09/21/14 [History] LORazepam [Ativan] 0.5 mg PO QID PRN 03/22/15 [History] Amoxicillin 2,000 mg PO ASDIRECTED PRN 10/29/19 [History] Cetirizine [ZyrTEC] 10 mg PO DAILY 10/29/19 [History] Doxazosin [Doxazosin Mesylate] 4 mg PO DAILY 10/29/19 [History] Escitalopram [Lexapro] 20 mg PO DAILY 10/29/19 [History] Omeprazole 20 mg PO DAILY 11/03/19 [History] Oxymetazoline HCl [Nasal [place]] 1 spr NS BID 07/19/20 [History] Acetaminophen/Diphenhydramine [Tylenol Pm Ex-Strength Caplet] 1 tab PO BEDTIME PRN 06/06/21 [History] Desoximetasone [Topicort 0.05% Crm] 1 dose TOP BID 06/06/21 [History] Fluticasone Propionate [Flonase] 1 dose NASBOTH BID 06/06/21 [History] Hydrocodone/Acetaminophen [HYDROcodone-Acetaminophen 10-325 MG] 1 tab PO Q6H PRN 06/06/21 [History] Hydrocortisone Acetate [Proctocort] 1 dose RECTAL DAILY PRN 06/06/21 [History] Timolol Maleate [Timoptic] 1 drop EYEBOTH BID 06/06/21 [History] amLODIPine [Norvasc] 5 mg PO DAILY 06/06/21 [History] traZODone HCl [Trazodone HCl] 100 mg PO BEDTIME PRN 06/06/21 [History] - CURRENT (IN HOUSE) MEDS Current Meds: Current Medications Lactated Ringer's (Ringers, Lactated) 1,000 mls @ 125 mls/hr IV ASDIRECTED SUSHMA Stop: 06/07/21 18:00 Lidocaine/Sodium Bicarbonate (Lidocaine 1%/Sod Bicarbonate In Ns 8.4% 1 Ml Syringe) 0.25 ml IDERM ONETIME PRN PRN Reason: Prior to IV Start Stop: 06/07/21 18:00 Sodium Chloride (Sodium Chloride 0.9% 10 Ml Syringe) 10 ml FLUSH ASDIRECTED PRN PRN Reason: Keep Vein Open Stop: 06/07/21 18:00
[~2021-06-07 06:51] MED LIST: Lactated Ringers 1,000 ML IV SCH; Lidocaine 1%/Sod Bicarbonate in NS 8.4% 1 ML Syringe IDERM PRN; Sodium Chloride 0.9% 10 ML Syringe FLUSH PRN
[2021-06-07] MEDS ORDERED: Lidocaine 1% 4 ML ONE (07:25)
[2021-06-07] MEDS ORDERED: Sodium Bicarbonate 8.4% 50 MEQ/50 ML SDV ONE (07:25)
[2021-06-07] MEDS ORDERED: Propofol 200 MG/20 ML SDV ONE (07:25)
[2021-06-07] MEDS ORDERED: Lidocaine 0.5% 50 ML SDV ONE (07:25)
[2021-06-07] MEDS ORDERED: Ondansetron 4 MG/2 ML SDV ONE (07:25)
[2021-06-07] MEDS ORDERED: fentaNYL 100 MCG/2 ML SDV ONE (07:25)
[2021-06-07] MEDS ORDERED: ceFAZolin 1 GM Vial ONE (07:25)
[2021-06-07] MEDS ORDERED: Triamcinolone Acetonide 40 MG/ML 1 ML SDV ONE (08:12)
[2021-06-07] MEDS ORDERED: Bupivacaine 0.25% 10 ML SDV ONE (08:12)
[2021-06-07] MEDS ORDERED: HYDROmorphone 0.5 MG/0.5 ML Syringe IVPUSH PRN (08:41)
[2021-06-07] MEDS ORDERED: Albuterol 0.083% 2.5 MG/3 ML Neb Soln NEB PRN (08:41)
[2021-06-07] MEDS ORDERED: Ondansetron 4 MG/2 ML SDV IVPUSH PRN (08:41)
--- NOTE | 2021-06-07 09:18 | PCM48HPAN ---
Post Anesthesia Note - EVALUATION WITHIN 48HRS OF ANESTHETIC Vital Signs in Normal Range: Yes Patient Participated in Evaluation: Yes Respiratory Function Stable: Yes Airway Patent: Yes Cardiovascular Function Stable: Yes Hydration Status Stable: Yes Pain Control Satisfactory: Yes Nausea and Vomiting Control Satisfactory: Yes Mental Status Recovered: Yes Vital Signs: Last Vital Signs Temp 97.7 06/07/21 0912 Pulse 56 06/07/21 0912 Resp 10 06/07/21 0912 BP 95/53 06/07/21 0912 Pulse Ox 96 06/07/21 0912
[2021-06-07 15:27] VITALS: BP 138/75; PULSE 67
--- NOTE | 2021-06-07 16:53 | OR ---
DATE OF OPERATION: 06/07/2021 SURGEON: Abdelrahman Mcnulty MD PREOPERATIVE DIAGNOSIS: 1. Right carpal tunnel syndrome, G56.01. 2. Right small finger stenosing tenosynovitis, M65.351. 3. Left carpal tunnel syndrome, G56.02. POSTOPERATIVE DIAGNOSIS: 1. Right carpal tunnel syndrome, G56.01. 2. Right small finger stenosing tenosynovitis, M65.351. 3. Left carpal tunnel syndrome, G56.02. OPERATION PERFORMED: 1. Right open carpal tunnel release, 15077. 2. Right small finger A1 venita release, 88390. 3. Left carpal tunnel injection, . SUPREME COURT JUDGE: Zainab Elizalde. DESCRIPTION OF PROCEDURE: The patient is a pleasant 75-year-old gentleman with symptomatic right carpal tunnel syndrome, stenosing tenosynovitis of the right small finger, as well as symptomatic left carpal tunnel syndrome. After discussing risks, benefits, alternatives of both conservatives as well as surgical treatment, the patient verbalized understanding and wished to proceed with surgery. The patient was brought to the operating room and underwent Antonio blockade. The right upper extremity was prepped and draped in standard orthopedic fashion. Surgical pause was performed identifying the appropriate patient and appropriate extremity to be operated upon. Preoperative antibiotics were given. A longitudinal incision was made between thenar-hypothenar eminence. Sharp dissection was carried down to the skin and subcutaneous tissue. Hemostasis was obtained. Dissected down, identified the palmar fascial fibers. These were mobilized. Then utilizing a Mccoy blade, we opened the transverse carpal ligament along the ulnar aspect. This was split down to the superficial palmar arch distally. We turned our attention proximally, we split the transverse carpal ligament and the antebrachial fascia several centimeters proximal to the wrist crease. He had mild synovitis in the carpal tunnel but no other identifiable abnormalities. The wound was irrigated. Skin was closed with 5-0 nylon. Attention was turned to the small finger. I made a longitudinal incision over the distal palmar crease proximal to the MP flexor crease over the small finger with sharp dissection, was carried down to the skin and subcutaneous tissue. Hemostasis was obtained. Dissected down, identified the radial and ulnar neurovascular bundles. These were protected. Then I ensured that the A1 venita was incised. I released the flexor tendon sheath proximally and released A1 venita distally down to the level of first cruciate venita. Flexion and extension was normal without catching or locking. Wound was irrigated, skin was closed with 5-0 nylon. I then injected the left carpal tunnel with a mixture of 1 mL of Kenalog, 1 mL of 0.25% bupivacaine under sterile condition without complication. The patient was brought to Recovery in satisfactory condition. ANESTHESIA: ESTIMATED BLOOD LOSS: MMODAL /[id number]
== END 2021-06-07 10:05 | disposition home or self-care (01) ==
LOC: JD.SDS 06:51
PROVIDERS: ATTEND Orthopaedic Surgery
DX: G56.03 Carpal tunnel syndrome, bilateral upper limbs (principal); M65.351 Trigger finger, right little finger; I10 Essential (primary) hypertension; Z79.899 Other long term (current) drug therapy
CPT/HCPCS: 20526; 26055; 64721; 87641; J0690; J2405; J2704; J3010; J3301; J3490; J7120; 01810; 99100

== ENCOUNTER 2022-09-07 20:13 | Emergency (ER) | payer MEDICARE, BC ==
[2022-09-07] MEDS ORDERED: Iopamidol 612 MG/ML 100 ML Bottle IV ONE (20:14)
[2022-09-07] MEDS: Sodium Chloride 0.9% 10 ML Syringe FLUSH PRN ×2 (21:52→23:26)
[2022-09-08 00:18] VITALS: BP 156/89; PULSE 78
== END 2022-09-08 00:17 | disposition home or self-care (01) ==
LOC: JD.ED 20:13
DX: N32.89 Other specified disorders of bladder (principal); I10 Essential (primary) hypertension; Z79.82 Long term (current) use of aspirin; Z79.899 Other long term (current) drug therapy
CPT/HCPCS: 36415; 74177; 81001; 85014; 85018; 99284; J3490; Q9967

== ENCOUNTER 2023-01-02 10:43 | Day surgery (SDC) | payer MEDICARE, BC ==
[~2023-01-02 10:43] MED LIST changes: +Sodium Chloride 0.9% 10 ML Syringe FLUSH SCH
[2023-01-02] MEDS ORDERED: Bupivacaine 0.25% 10 ML SDV ONE (11:54)
[2023-01-02] MEDS ORDERED: Lidocaine 1% 30 ML SDV ONE (11:54)
[2023-01-02] MEDS ORDERED: Betamethasone Acetate/Betamethasone Sod Phosphate 6 MG/1 ML MDV ONE (11:54)
[2023-01-02] MEDS ORDERED: ceFAZolin 2 GM Vial ONE (12:59)
[2023-01-02 15:43] VITALS: BP 146/83; PULSE 68
== END 2023-01-02 14:06 | disposition home or self-care (01) ==
LOC: JD.SDS 10:43
PROVIDERS: ATTEND Orthopaedic Surgery
DX: M65.841 Other synovitis and tenosynovitis, right hand (principal); M19.042 Primary osteoarthritis, left hand; I10 Essential (primary) hypertension; N40.0 Benign prostatic hyperplasia without lower urinary tract symptoms; G47.00 Insomnia, unspecified; F33.1 Major depressive disorder, recurrent, moderate; Z79.899 Other long term (current) drug therapy
CPT/HCPCS: 20600; 26055; 87641; J0690; J0702; J3490; J7120

== ENCOUNTER 2023-04-27 12:44 | Emergency (ER) | payer MEDICARE, BC ==
[2023-04-27] MEDS ORDERED: Ondansetron 4 MG/2 ML SDV IVPUSH ONE (13:34)
[2023-04-27] MEDS ORDERED: HYDROmorphone 0.5 MG/0.5 ML Syringe IVPUSH ONE (13:34)
[2023-04-27] MEDS ORDERED: Sodium Chloride 0.9% 1,000 ML IV ONE (13:34)
[2023-04-27 13:51] LABS: BASOPHILS ABSOLUTE AUTO 0.04 K/mm3 (0.01-0.08); BASOPHILS PERCENT AUTO 0.4 % (0.1-1.2); EOSINOPHILS ABSOLUTE AUTO 0.12 K/mm3 (0.04-0.54); EOSINOPHILS PERCENT AUTO 1.2 (0.8-7.0); HEMATOCRIT 34.8 % (40.1-51.0); IMMATURE GRAN ABSOLUTE AUTO 0.38 K/mm3 (0.00-0.10); IMMATURE GRAN PERCENT AUTO 3.9 % (<=1.0); LYMPHOCYTES ABSOLUTE AUTO 1.66 K/mm3 (1.32-3.57); LYMPHOCYTES PERCENT AUTO 16.9 % (21.8-53.1); MEAN CORPUSCULAR HGB CONC 32.5 g/dl (32.2-35.5); MEAN CORPUSCULAR VOLUME 98.6 fl (79.0-92.2); MEAN PLATELET VOLUME 9.4 fl (9.4-12.3); MONOCYTES ABSOLUTE AUTO 0.73 K/mm3 (0.30-0.82); MONOCYTES PERCENT AUTO 7.4 % (5.3-12.2); NEUTROPHILS ABSOLUTE AUTO 6.87 K/mm3 (1.78-5.38); NEUTROPHILS PERCENT AUTO 70.2 % (34.0-67.9); PLATELET COUNT,PLT 205 K/mm3 (163-337); RED BLOOD CELL COUNT 3.53 M/mm3 (4.63-6.08)
[2023-04-27 13:53] LABS: HEMOGLOBIN 11.3 gm/dl (13.7-17.5)
[2023-04-27 14:15] LABS: A/G RATIO 0.7 (1-2); ALBUMIN 2.6 g/dl (3.4-5.0); ANION GAP 13.2 (5-15); BILIRUBIN TOTAL 0.3 mg/dL (0.2-1.0); BUN/CREATININE RATIO 25.6 (14-18); CALCIUM 8.5 mg/dL (8.5-10.1); CREATININE 0.9 mg/dL (0.7-1.3); EST CRCL DRUG DOSING (CG) 70.97 mL/min; MAGNESIUM 2.5 mg/dL (1.8-2.4); POTASSIUM,K 4.2 mEq/L (3.5-5.1); PROTEIN TOTAL,TP 6.3 g/dl (6.4-8.2)
[2023-04-27 14:29] LABS: LACTIC ACID 0.8 mmol/L (0.4-2.0)
[2023-04-27] MEDS ORDERED: Sodium Chloride 0.9% 10 ML Syringe FLUSH ONE (14:30)
[2023-04-27] MEDS ORDERED: Iopamidol 612 MG/ML 100 ML Bottle IVPUSH ONE (14:30)
[2023-04-27 14:34] LABS: C-REACTIVE PROTEIN 15.2 mg/dL (<1.0)
[2023-04-27 15:46] LABS: APPEARANCE,URINE CLEAR (Clear); BILIRUBIN,URINE NEGATIVE (Negative); COLOR,URINE YELLOW (Yellow); GLUCOSE,URINE NEGATIVE (Negative); KETONES,URINE NEGATIVE (Negative); LEUKOCYTE ESTERASE,URINE NEGATIVE (Negative); NITRITE,URINE NEGATIVE (Negative); OCCULT BLOOD,URINE NEGATIVE (Negative); PROTEIN,URINE TRACE (Negative); UROBILINOGEN,URINE 0.2 (0.2-1.0)
[2023-04-27 15:55] LABS: BACTERIA,URINE RARE /hpf (FEW); MUCUS,URINE RARE /hpf (FEW); RBC,URINE 0-5 /hpf (0-5); SQUAMOUS EPITHELIAL CELLS,UR NOT SEEN /hpf (0-5); WBC,URINE 0-5 /hpf (0-5)
[2023-04-27 19:09] VITALS: BP 136/75; PULSE 92
== END 2023-04-27 17:05 | disposition home or self-care (01) ==
LOC: JD.ED 12:44
DX: C61 Malignant neoplasm of prostate (principal); C79.51 Secondary malignant neoplasm of bone; I10 Essential (primary) hypertension; K21.9 Gastro-esophageal reflux disease without esophagitis; N40.0 Benign prostatic hyperplasia without lower urinary tract symptoms; Z79.82 Long term (current) use of aspirin; Z79.899 Other long term (current) drug therapy; Z86.16 Personal history of COVID-19
CPT/HCPCS: 36415; 71260; 74177; 80053; 81001; 83605; 83735; 84484; 85025; 86140; 93005; 96361; 96374; 96375; 99284; J1170; J2405; J3490; J7030; Q9967; 93010; 99285